=== PATIENT | female | born 1995 | race Two or more races ===

== ENCOUNTER 2017-03-05 23:03 | Emergency (ER) | payer SELFPAY ==
[~2017-03-05] VITALS: Ht 162.6 cm; Wt 61.5 kg
[2017-03-05 23:04] VITALS: BP 132/89
== END 2017-03-06 00:36 | disposition home or self-care (01) ==
LOC: ED 03-06 00:30
DX: J02.8 Acute pharyngitis due to other specified organisms (principal); B97.89 Other viral agents as the cause of diseases classified elsewhere
CPT/HCPCS: 71020; 87081; 87880